=== PATIENT | female | born 1945 | race Two or more races ===

== ENCOUNTER 2021-10-17 07:45 | Inpatient (IN) | payer OTHER ==
[~2021-10-17] VITALS: Ht 170.2 cm; Wt 110.2 kg
[2021-10-17] MEDS ORDERED: GABAPENTIN800 M1 PO (08:00)
[2021-10-17] MEDS ORDERED: SYNTHROID137 MCG PO (08:01)
[2021-10-17] MEDS ORDERED: ALEVE220 MG PO (08:02)
[2021-10-17] MEDS ORDERED: NABUMETONE750 MG PO (08:02)
[2021-10-23] MEDS ORDERED: BACTRIM DS TAB1 EACH PO (06:36)
[2021-10-23] MEDS ORDERED: XARELTO10 MG PO (06:36)
[2021-10-23] MEDS ORDERED: INTEGRA PLUS C1 EACH PO (06:36)
[2021-10-23] MEDS ORDERED: OXYC1TAB9 PO (06:36)
== END 2021-10-23 12:08 | DRG 470 ==
LOC: SURH 10-21 07:45 → O/R 10-21 08:50 → SURH 10-21 08:50
PROVIDERS: ADMIT Orthopaedic Surgery Sports Medicine; ATTEND Orthopaedic Surgery Sports Medicine
PROC: 0SRC0J9 Replacement of Right Knee Joint with Synthetic Substitute, Cemented, Open Approach (ICD-10-PCS; principal; 2021-10-21 12:15)
DX: M17.11 Unilateral primary osteoarthritis, right knee (principal); Z96.659 Presence of unspecified artificial knee joint; Z20.822 Contact with and (suspected) exposure to COVID-19

== ENCOUNTER 2022-08-25 07:16 | Outpatient (CLI) | payer OTHER ==
[~2022-08-25 07:16] MED LIST: ALEVE220 MG PO; BACTRIM DS TAB1 EACH PO; GABAPENTIN800 M1 PO; INTEGRA PLUS C1 EACH PO; NABUMETONE750 MG PO; OXYC1TAB9 PO; SYNTHROID137 MCG PO; XARELTO10 MG PO
== END 2022-08-25 07:25 | disposition home or self-care (01) ==
LOC: TOM 07:16
DX: R19.5 Other fecal abnormalities (principal); Z80.0 Family history of malignant neoplasm of digestive organs; Z12.11 Encounter for screening for malignant neoplasm of colon